=== PATIENT | male | born 1980 | race Caucasian/White ===

== ENCOUNTER 2021-02-05 17:16 | Emergency (ER) | payer MEDICAID, SELFPAY ==
[2021-02-05 19:30] VITALS: BP 125/64; PULSE 69; RESP 18; TEMP 36.4; O2SAT 98; BMI 25.2
--- NOTE | 2021-02-05 20:14 | ED.EYEPROB ---
HPI - Eye Problem General Chief complaint: Eye Problems Stated complaint: Eye swelling Source: patient Mode of arrival: ambulatory Limitations: no limitations History of Present Illness HPI Narrative: 40-year-old male presents with 2 weeks of left eye pain and redness. Has been using Visine and I stream irrigation to help with symptoms. Does not report any change in vision however does have episodes of blurriness. Patient does not report trauma or risk of foreign body. MD chief complaint: eye pain and eye redness Onset (ago): week(s) (2) Onset description: sudden Duration: constant Location: left eye Eye Symptoms: burning, redness and pain Place: home Mechanism: none Severity: moderate Severity scale (1-10): 6 If Pain, Quality: burning and aching Associated symptoms: none Treatments Prior to Arrival: irrigated eye, OTC eye drops and eyepatch Related Data Patient tetanus UTD: No Previous Rx's Medication Instructions Recorded erythromycin 5 mg/gram (0.5 %) eye 0.5 inch OPHTHALMIC (EYE) Q4H 7 02/05/21 ointment Days #3.5 g prednisolone acetate 1 % eye 1 drp OPHTHALMIC (EYE) QID 7 Days 02/05/21 drops,suspension (Pred Forte) #5 ml Allergies Allergy/AdvReac Type Severity Reaction Status Date / Time No Known Allergies Allergy Verified 02/05/21 20:25 Review of Systems Review of Systems: Constitutional: No Fever, No Chills ENT/Mouth: No Ear Pain, No Hoarseness, No sore throat Eyes: Positive left Eye Pain and redness, No Swelling, No Foreign Body Cardiovascular: No Chest Pain, No SOB Respiratory: No Cough, No Dyspnea Gastrointestinal: No Nausea, No Vomiting, No Diarrhea, No abdominal Pain Genitourinary: No Dysuria, No Hematuria Musculoskeletal: No joint pain, No Myalgias, No Joint Swelling Skin: No Skin lacerations, No rash Neuro: No Weakness, No Numbness, No Paresthesias, No Loss of Consciousness, No Dizziness, No Headache Psych: No Anxiety/Panic, No Depression Heme/Lymph: no easy bruising, no Lymphadenopathy Endocrine: No Polyuria, No Polydipsia Yes all other systems are reviewed and are negative [facility] Past Medical History Attestation statement: The following information was validated with the patient. Source: old records reviewed Social History Social History Advance Directives: No Advance Directives Information Provided: No Physical Exam Vital Signs: Vital Signs: Last Vital Signs Temp 97.6 F 02/05/21 19:30 Pulse 69 02/05/21 19:30 Resp 18 02/05/21 19:30 BP 125/64 02/05/21 19:30 Pulse Ox 98 02/05/21 19:30 BMI result Body Mass Index 25.2 Appearance: Alert. Oriented X3. No acute distress. Eyes: Pupils equal, round and reactive to light. EOMI. Fluorescein uptake to the left cornea at the 6 o'clock position. Punctate. Inflammation noted at the 3 and 9 o'clock position to the left eye consistent with iritis. No pain to extraocular movements. Funduscopic exam is normal. ENT: Pharynx normal. Neck: Normal inspection. Neck supple. CVS: Normal heart rate and rhythm. Pulses normal. Respiratory: No respiratory distress. Breath sounds normal. Abdomen: Soft and nontender. Skin: Skin warm and dry. Normal skin color. Normal skin turgor. Extremities: No lower extremity edema. Gait well-balanced well coordinated. Neuro: No motor deficit. No sensory deficit. Cranial nerves 2-12 intact. Course Course Course Narrative: 40-year-old male presents with left eye irritation redness and pain. Has been using Visine drops and eye irrigation for 2 weeks. Does not report any trauma or suspicion of foreign body. Unknown when last Tdap vaccine was administered. Plan to administer today. Punctate fluorescein uptake at the 6 o'clock position on the left cornea, inflammation noted at the 3 and 6 o'clock position at the conjunctiva consistent with iritis. Will treat for iritis and corneal abrasion. I did discuss this case with Dr. Roman, prednisone not indicated at this time as there is a slight suspicion for viral infection. Will give erythromycin eye ointment have patient follow-up in the office on Saturday. Detailed discussion with patient regarding plan to follow-up with ophthalmology, and medication administration. Patient verbalized understanding of and agrees to plan of care to discharge home. Consultations Consultation #1: Abel Time: 21:40 MDM - Eye Problem Differential Diagnosis Differential diagnosis: Likely corneal abrasion, conjunctivitis, acute iritis, hyphema, subconjunctival hemorrhage and corneal ulcer Medical Records Attestation: I reviewed the patient's medical records. Discharge Plan Discharge Clinical Impression: Corneal abrasion, Acute iritis Patient Disposition: Home, Self-Care Instructions: Iritis (ED), Corneal Abrasion (ED) Additional Instructions: Fue evaluado por dolor y enrojecimiento del tito elly. El examen indica jose miguel vick?a abrasi?n e iritis de la c?rnea. Use feliz?ento oft?lmico de eritromicina cada 4 horas mientras est? despierto. Utilice 2 gotas para los ojos de prednisona en el tito elly cada 6 horas. Comun?quese con el Dr. Roman ma?jaime. Por favor llame y solicite jose miguel gurdeep. Actualizamos tapia vacuna Tdap hoy. Freeman por elegir judit departamento de emergencias para tapia evaluaci?n. Jason un seguimiento con tapia m?dico de atenci?n primaria seg?n sea necesario. Regrese al departamento de emergencias por cualquier s?ntoma nuevo, preocupante o que empeore. You were evaluated for left eye pain and redness. Exam indicates a small corneal abrasion and iritis. Please use erythromycin eye ointment every 4 hours while awake. Please use prednisone eyedrops 2 drops to the left eye every 6 hours. Please follow-up with Dr. Roman tomorrow. Please call and request an appointment. We updated your Tdap vaccine today. Thank you for choosing this emergency department for evaluation. Please follow-up with primary care physician as needed. Return to the emergency department for any new, concerning, or worsening symptoms. Prescriptions: New erythromycin 5 mg/gram (0.5 %) ointment 0.5 inch ophthalmic (eye) Q4H 7 Days Qty: 3.5 RF: 0 prednisolone acetate [Pred Forte] 1 % drops,suspension 1 drp ophthalmic (eye) QID 7 Days Qty: 5 RF: 0 Referrals: Terrell Roman [Physician] - 2 days (Left eye corneal abrasion and iritis) Interventions: ED Discharge Assessment Last Done: 02/05/21 22:18 Discharge Date/Time: 02/05/21 23:03
[2021-02-05] MEDS: Tetracaine HCl/PF 0.5% Oph Sol 4 ML DROPS 2 DROP EYE-LEFT (20:45)
[2021-02-05] MEDS: Diphth,Pertus(ACell),Tet Adult 0.5 ML SYRINGE IM (20:45)
[2021-02-05] MEDS: Eye Irrigation Solution 118 ML IRRIG.SOLN 1 APPL EYE-LEFT (20:45)
[2021-02-05] MEDS: Ketorolac Tromethamine 60 MG/2 ML VIAL IM (20:46)
[2021-02-05] MEDS: Fluorescein Sodium STRIP 1 STRIP EYE-LEFT (20:46)
[2021-02-05] MEDS: Erythromycin Base 0.5% Oph Oin 1 GM TUBE 1 CM EYE-LEFT (21:56)
== END 2021-02-05 23:03 | disposition home or self-care (01) ==
PROVIDERS: Emergency Provider Emergency Medicine
DX: S05.02XA Injury of conjunctiva and corneal abrasion without foreign body, left eye, initial encounter (principal); H20.00 Unspecified acute and subacute iridocyclitis; X58.XXXA Exposure to other specified factors, initial encounter; Y93.9 Activity, unspecified; Y92.9 Unspecified place or not applicable; Y99.9 Unspecified external cause status
CPT/HCPCS: 90471; 90715; 96372; 99284; J1885